=== PATIENT | female | born 1975 | race African-American/Black ===

== ENCOUNTER 2017-12-16 14:19 | Emergency (ER) | payer MEDICAID, OTHER ==
[~2017-12-16] VITALS: Ht 152.4 cm; Wt 53.1 kg
--- NOTE | 2017-12-16 15:38 | NUR ---
PATIENT WAS SEEN BY DR MEJIA. DC AND FOLLOW UP INSTRUCTIONS GIVEN AND EXPLAINED TO PATIENT WHO STATES SHE UNDERSTANDS ALL INSTRUCTIONS.
== END 2017-12-16 15:40 | disposition home or self-care (01) ==
LOC: ER 14:21
DX: I80.8 Phlebitis and thrombophlebitis of other sites (principal)
CPT/HCPCS: A4663

== ENCOUNTER 2019-12-10 15:15 | Emergency (ER) | payer SELFPAY ==
--- NOTE | 2019-12-10 15:56 | NUR ---
PT NOT IN WAITING ROOM WHEN CALLED FOR TRIAGE X 2
[2019-12-10] MEDS ORDERED: IBUPROFEN 600 MG TABLET ONE (19:28)
== END 2019-12-10 16:14 | disposition left against medical advice (07) ==
LOC: ER 15:17
DX: Z75.3 Unavailability and inaccessibility of health-care facilities (principal)

== ENCOUNTER 2019-12-10 18:00 | Emergency (ER) | payer SELFPAY ==
[~2019-12-10] VITALS: Ht 149.9 cm; Wt 49.9 kg
[2019-12-10] MEDS ORDERED: IBUPROFEN 600 MG TABLET PO ONE (19:30)
--- NOTE | 2019-12-10 19:49 | NUR ---
Patient discharged to home in stable condition. Written and verbal after care instructions given. Patient verbalizes understanding of instructions. Stressed follow up or return to ER for worsening s/s. Pt ambulated out of ER with crutches, gait training done, no falls noted, no acute signs of distress, VSS, all belongings taken.
[2019-12-10 19:50] VITALS: BP 108/64
== END 2019-12-10 19:51 | disposition home or self-care (01) ==
LOC: ER 18:04
DX: S90.32XA Contusion of left foot, initial encounter (principal); W17.89XA Other fall from one level to another, initial encounter; Y93.39 Activity, other involving climbing, rappelling and jumping off; Y92.89 Other specified places as the place of occurrence of the external cause; Z85.41 Personal history of malignant neoplasm of cervix uteri
CPT/HCPCS: 73630; A4663

== ENCOUNTER 2021-05-20 16:45 | Emergency (ER) | payer MEDICAID ==
[~2021-05-20] VITALS: Ht 152.4 cm; Wt 52.2 kg
[2021-05-20] MEDS ORDERED: KETOROLAC TROMETHAMINE 15 MG INJ IM ONE (18:15)
[2021-05-20] MEDS ORDERED: KETOROLAC TROMETHAMINE 15 MG INJ ONE (18:53)
[2021-05-20] MEDS ORDERED: HYDR-4209 PO (19:12)
[2021-05-20] MEDS ORDERED: IBUP-1955 PO (19:12)
[2021-05-20] MEDS ORDERED: HYDROCODONE/APAP 5-325MG TABLET PO ONE (19:15)
[2021-05-20] MEDS ORDERED: HYDROCODONE/APAP 5-325MG TABLET ONE (19:22)
--- NOTE | 2021-05-20 19:26 | NUR ---
Patient discharged to home in stable condition. Written and verbal after care instructions given. Patient verbalizes understanding of instructions. Stressed follow up or return to ER for worsening s/s.
[2021-05-20 19:28] VITALS: BP 142/70
== END 2021-05-20 19:28 | disposition home or self-care (01) ==
LOC: ER 16:55
DX: S20.211A Contusion of right front wall of thorax, initial encounter (principal); V49.9XXA Car occupant (driver) (passenger) injured in unspecified traffic accident, initial encounter; Y92.410 Unspecified street and highway as the place of occurrence of the external cause; M25.512 Pain in left shoulder; Z85.41 Personal history of malignant neoplasm of cervix uteri; Z87.01 Personal history of pneumonia (recurrent)
CPT/HCPCS: 71101; 72050; 73030; 96372; 99284; J1885; A4663